=== PATIENT | female | born 1950 | race African-American/Black ===

== ENCOUNTER 2017-07-07 19:48 | Observation (INO) ==
[2017-07-07 20:07] LABS: Bilirubin,Urine Negative (Negative); Blood,Urine Negative (Negative); Clarity,Urine Cloudy (Clear); Color,Urine Yellow (Yellow); Glucose,Urine (UA) Normal (Normal); Ketones,Urine Negative (Negative); Leukocyte Esterase,Urine Negative (Negative); Nitrite,Urine Negative (Negative); PH,Urine 6.5 pH Units (5.0-8.0); Protein,Urine Trace mg/dL (Neg-Trace); Urobilinogen,Urine Normal (Normal)
[2017-07-07 20:09] LABS: Bacteria,Urine None Seen per hpf (None-Few); Hyaline Casts,Urine None Seen per lpf (None-Few); Squamous Epithelial Cell,Urine Many per lpf (None-Few)
[2017-07-07 20:22] LABS: Basophils % 0.4 %; Eosinophils # 0.6 K/mcL (0.0-0.6); Eosinophils % 6.7 %; Hematocrit 33.8 % (35.3-44.9); Hemoglobin 10.8 g/dL (11.5-15.4); Immature Granulocytes % 0.3 % (0-4); Lymphocytes # 1.9 K/mcL (0.6-4.6); Lymphocytes % 19.7 %; Mean Corpuscular Hemoglobin 27.2 pg (28.0-33.3); Mean Corpuscular Volume 85.1 fL (83.0-100.0); Mean Platelet Volume 9.5 fL (9.4-12.4); Monocytes # 0.7 K/mcL (0.0-1.3); Monocytes % 7.4 %; Neutrophils # 6.3 K/mcL (1.6-8.9); Platelet Count 311 K/mcL (140-400); Red Blood Count 3.97 M/mcL (3.82-4.97); Red Cell Distribution Width 12.6 % (11.5-14.5); Segmented Neutrophils % 65.5 %
[2017-07-07 20:32] LABS: RBC,Urine 0-3 per hpf (0-3)
[2017-07-07 20:49] LABS: Alanine Aminotransferase 7 Units/L (7-52); Albumin 3.8 g/dL (3.5-5.7); Albumin/Globulin Ratio 1.2 (1.1-2.2); Alkaline Phosphatase 70 Units/L (34-104); Amylase 58 Units/L (29-103); Aspartate Amino Transferase 11 Units/L (13-39); BUN/Creatinine Ratio 8 (6-26); Bilirubin,Direct 0.1 mg/dL (0.0-0.2); Bilirubin,Indirect 0.3 mg/dL (0.0-1.2); Bilirubin,Total 0.4 mg/dL (0.3-1.0); Blood Urea Nitrogen 8 mg/dL (8-23); Calcium 9.1 mg/dL (8.6-10.3); Carbon Dioxide 29 mEq/L (23-29); Chloride 104 mEq/L (98-107); Globulin 3.1 g/dL (2.4-3.5); Glucose 121 mg/dL (70-105); Lipase 32 Units/L (11-82); Osmolality,Calculated 292 (280-300); Potassium 3.1 mEq/L (3.5-5.1); Sodium 141 mEq/L (136-145); Total Protein 6.9 g/dL (6.4-8.9); eGFR For African Americans > 60 (> 60); eGFR For Non-African Americans 57 (> 60)
[2017-07-07 20:52] LABS: Troponin I 0.05 ng/mL (< 0.04)
[2017-07-07] MEDS ORDERED: *HR* HYDROcodone/Acet 5/325 mg TABLET PO ONE (21:28)
--- NOTE | 2017-07-07 21:37 | Emergency Department Note ---
Disposition Clinical Impression: Elevated troponin I level Strain of lumbar region Qualifiers: Encounter type: initial encounter Qualified Code(s): S39.012A - Strain of muscle, fascia and tendon of lower back, initial encounter Disposition: Admitted As Inpatient Condition: Fair Referrals: Lake Taylor DO [Primary Care Provider] - Forms: ED Satisfaction Letter Time of Disposition: 21:45 Back Pain HPI - General Chief Complaint: ED Back Pain/Injury Stated Complaint: right flank pain Time Seen by Provider: 07/07/17 20:23 Source: patient Limitations: no limitations Nursing Notes Reviewed: Yes Vital Signs Reviewed: Yes - History of Present Illness Pt Subjective Complaint: back pain Onset (ago): day(s) (10) Duration: gradually worsening Similar Symptoms Previously: No Location: thoracic spine (R Lower ) Pain Scale: 10 Quality: aching Radiation: other (No radiation to groin. Remains in lower quadrant of R back. No abdominal pain. ) Improves with: movement (extension of back ), other (Ibuprofen ) Worsens with: other (flexion) Context: turning/twisting, bending, other Associated symptoms: Denies: numbness, incontinence of bowel/bladder, fever, chills Treatments prior to arrival: other (ibuprofen ) - Related Data Home Medications Medication Instructions Recorded Confirmed Metoprolol XL (24 HR) Succ [Toprol 25 mg PO DAILY 05/04/16 07/07/17 XL] Potassium Chloride [Klor-Con 20 meq PO TID 07/07/17 07/07/17 Sprinkle] Allergies Allergy/AdvReac Type Severity Reaction Status Date / Time No Known Allergies Allergy Verified 07/07/17 20:00 Constitutional: Reports: other (No diaphoresis ). Denies: fever Cardiovascular: Reports: other (No radiation to L arm ). Denies: chest pain, palpitations Respiratory: Denies: dyspnea Gastrointestinal: Reports: diarrhea (chronic 2/2 to colitis ). Denies: abdominal pain Musculoskeletal: Reports: as per HPI, back pain Neurological: Reports: as per HPI, abnormal gait (2/2 to pain ). Denies: weakness, numbness Endocrine: Reports: heat or cold intolerance (2/2 to menoapuse ) Past Medical History - Past Medical History Medical history: Reports: hypertension Surgical history: Reports: hysterectomy Psychiatric history: Reports: no psych history CHIEF PILOT history: Reports: non-contributory - Social History Smoking Status: Never smoker Smokeless Tobacco Status: No Alcohol use: Reports: none Drug use: Reports: none Physical Exam - General Limitations: no limitations General appearance: alert, in no apparent distress - Head Head exam: atraumatic, normocephalic - Neck Neck exam: Present: full ROM - Chest Chest inspection: Present: symmetric chest wall rise. Absent: tenderness - Respiratory Respiratory exam: Absent: respiratory distress, wheezes, accessory muscle use - Cardiovascular Cardiovascular exam: Present: regular rate, normal rhythm, +S1, +S2 - Abdominal Exam Abdominal exam: Present: soft, Non-Tender, normal bowel sounds. Absent: tenderness, guarding, rebound, rigidity - Extremities Exam Extremities exam: Present: pedal edema (+1, pitting. ), other (Gross Sensation intact on b/l legs ). Absent: tenderness - Expanded Lower Extremity Exam Gait: observed and limited by pain, other (Patient able to bear weight b/l) - Back Exam Back exam: Present: paraspinal tenderness, other. Absent: vertebral tenderness (Limited ROM on lateral rotation and forward flexion) Course - Reevaluation(s) Reevaluation #1: 21:30 - Discussed lab findings with patient. Patient amenable to consideration of hospitalization. Reevaluation #2: 22:07 -Patient being transported to imaging via wheelchair. Reevaluation #3: 23:00 - Patient's back pain mildly improved however still endorses pain. Unable to rate. Offered lidocaine patch which patient accepted. Discussed X- ray imaging with patient and family. No evidence of an acute injury. Mild-to- moderate degenerative disc disease at L5-S1. Patient and family asked regarding need for physical therapy. Recommended patient follow-up with PCP regarding continued monitoring and treatment of back pain. Counseled patient that physical therapy may be of benefit, however this will ultimately depend on PCP' s recommendation. - Consultations Consultation #1: approx 21:35- Discussed case with Hospitalist. Requests cardiology recommendation. Cardiology consulted. Consultation #2: 22:00- Discussed case with Dr. Sharma. Recommends hospitalization, cardiology with remain on consult. No further recommendations at this time. Consultation #3: 22:05 - Hospitalist accepts admission. Vital Signs Temperature 99.2 F 07/07/17 20:00 Pulse Rate 86 07/07/17 20:00 Respiratory Rate 14 07/07/17 20:00 Blood Pressure 129/80 07/07/17 20:00 O2 Sat by Pulse Oximetry 96 07/07/17 20:00 Temperature 99.2 F 07/07/17 20:00 Pulse Rate 77 07/07/17 22:53 Respiratory Rate 18 07/07/17 22:53 Blood Pressure 124/78 07/07/17 22:53 O2 Sat by Pulse Oximetry 98 07/07/17 22:53 Oxygen Delivery Oxygen Delivery Room Air Back Pain/Injury - MDM Narrative Medical decision making narrative: 67-year-old female with a past medical history of hypertension and PSVT presenting with her right-sided back pain. No chest pains, no shortness of breath, no diaphoresis no radiation to left arm. Triage troponin levels elevated. No ischemic changes noted on EKG. Heart score 4 (Age > 65, Hx of HTN , Initial troponin 1-3 x normal limit) . Cardiology consult, recommend hospitalization for ACS rule out. No acute fracture seen on x-ray. - Medical Records Medical records reviewed: Yes I reviewed the patient's medical records. ECW Note with Dr. Branham -08/18/2016: "Previous testing: Holter monitor 11/28/2014: Average heart rate 84. Rare PVCs and PACs. One 4 beat episode of SVT consistent with atrial tachycardia. Echocardiogram 01/22/2015: LVEF 60-65%. Normal LV, RV size and function. Mild diastolic dysfunction. No pulmonary hypertension. No valvular dysfunction. Standard stress test 05/27/2015: Negative for ischemia. No arrhythmias during exercise or recovery. No chest discomfort reported." - Lab Data Lab results reviewed: Yes I reviewed the patient's lab results. Result diagrams: 07/07/17 20:10 07/07/17 20:10 Lab Results 07/07/17 07/07/17 07/07/17 Range/Units 19:50 20:10 20:10 WBC 9.6 (4.3-11.1) K/mcL RBC 3.97 (3.82-4.97) M/mcL Hgb 10.8 L (11.5-15.4) g/dL Hct 33.8 L (35.3-44.9) % MCV 85.1 (83.0-100.0) fL MCH 27.2 L (28.0-33.3) pg MCHC 32.0 (31.6-35.5) g/dL RDW 12.6 (11.5-14.5) % Plt Count 311 (140-400) K/mcL MPV 9.5 (9.4-12.4) fL Immature Gran % 0.3 (0-4) % Seg Neutrophils % 65.5 % Lymphocytes % 19.7 % Monocytes % 7.4 % Eosinophils % 6.7 % Basophils % 0.4 % Neutrophils # 6.3 (1.6-8.9) K/mcL Lymphocytes # 1.9 (0.6-4.6) K/mcL Monocytes # 0.7 (0.0-1.3) K/mcL Eosinophils # 0.6 (0.0-0.6) K/mcL Basophils # 0.0 (0.0-0.2) K/mcL Sodium 141 (136-145) mEq/L Potassium 3.1 L (3.5-5.1) mEq/L Chloride 104 (98-107) mEq/L Carbon Dioxide 29 (23-29) mEq/L BUN 8 (8-23) mg/dL Creatinine 0.98 (0.60-1.20) mg/dL Est GFR ( Amer) > 60 (> 60) Est GFR (Non-Af Amer) 57 L (> 60) BUN/Creatinine Ratio 8 (6-26) Glucose 121 H (70-105) mg/dL Calculated Osmolality 292 (280-300) Calcium 9.1 (8.6-10.3) mg/dL Total Bilirubin 0.4 (0.3-1.0) mg/dL Direct Bilirubin 0.1 (0.0-0.2) mg/dL Indirect Bilirubin 0.3 (0.0-1.2) mg/dL AST 11 L (13-39) Units/L ALT 7 (7-52) Units/L Alkaline Phosphatase 70 (34-104) Units/L Troponin I 0.05 H* (< 0.04) ng/mL Serum Total Protein 6.9 (6.4-8.9) g/dL Albumin 3.8 (3.5-5.7) g/dL Globulin 3.1 (2.4-3.5) g/dL Albumin/Globulin Ratio 1.2 (1.1-2.2) Amylase 58 (29-103) Units/L Lipase 32 (11-82) Units/L Urine Color Yellow (Yellow) Urine Clarity Cloudy A (Clear) Urine pH 6.5 (5.0-8.0) pH Units Ur Specific [place] 1.020 (1.010-1.025) Urine Protein Trace (Neg-Trace) mg/dL Urine Glucose (UA) Normal (Normal) mg/dL Urine Ketones Negative (Negative) mg/dL Urine Blood Negative (Negative) Urine Nitrite Negative (Negative) Urine Bilirubin Negative (Negative) Urine Urobilinogen Normal (Normal) mg/dL Ur Leukocyte Esterase Negative (Negative) Urine Microscopic RBC 0-3 (0-3) per hpf Urine Microscopic WBC 3-5 H (0-3) per hpf Ur Squamous Epith Cells Many H (None-Few) per lpf Urine Bacteria None Seen (None-Few) per hpf Hyaline Casts None Seen (None-Few) per lpf Ur Culture Indicated? NO (NO) - Radiology Data Radiology results reviewed: Yes I reviewed the patient's radiology results. Impressions Lumbar Spine X-Ray 07/07/17 21:27 IMPRESSION: Straightening of the normal lumbar lordosis. [id number] degenerative disc disease at L5-S1. No acute injury. D/ / Eliud Burnett MD / Eliud Burnett MD Interpreting Provider: Eliud Burnett MD Thoracic Spine X-Ray 07/07/17 21:27 IMPRESSION: No evidence of an acute injury. D/ / Eliud Burnett MD / Eliud Burnett MD Interpreting Provider: Eliud Burnett MD - EKG Data EKG attestation: Yes I reviewed and interpreted this EKG. EKG results narrative: 21:22:00 Sinus Rhythm. Ventricular rate 80. MS interval 154. QRS duration 81. QT/QTc 367/402. Reviewed with attending.
[2017-07-08] MEDS ORDERED: Dextrose Gel 15 GM/37.5 ML TUBE PO PRN ×2 (01:31)
[2017-07-08] MEDS ORDERED: D5% in Water 1,000 ML IVC PRN (01:31)
[2017-07-08] MEDS ORDERED: *HR* Dextrose 50 % in Water (Syg) 50 ML SYRINGE IVP PRN (01:31)
[2017-07-08] MEDS ORDERED: *HR* OxyCODONE Immed Rel 5 MG TABLET PO PRN (03:25)
[2017-07-08] MEDS ORDERED: Acetaminophen 325 MG TABLET PO PRN (03:25)
[2017-07-08] MEDS ORDERED: traMADol 50 MG TABLET PO PRN (03:25)
[2017-07-08] MEDS ORDERED: Naloxone 0.4 MG/ML INJ IVP PRN (03:25)
[2017-07-08] MEDS ORDERED: Potassium Chloride Elixir 20 MEQ/15 ML UDC PO ONE (03:28)
--- NOTE | 2017-07-08 03:29 | Internal Med History&Physical ---
Date of Encounter: 07/08/17 Time of Encounter: 03:29 Internal Medicine - H&P: HPI Chief complaint: Right lower back pain Admitted From: Emergency Dept Plans for Post Hospital Care: Home History of present illness: Ms. King is a 67 year old female with h/o- ulcerative colitis, presents with c/o- acute on chronic low back pain. SHe reports a 6-month h/o- right-sided low back pain, that got worse in the last 1 week, to the point that she cannot bend to clean her dining table. No h/o trauma. Pain is 10/10, nonradiating, constant , aggravated by turning in bed and bending, not associated with urinary/fecal incontinence, weakness/paresthesias in legs. She went to PCP yesterday with this complaint and was given steroids and muscle relaxants; she did not take the steroids due to side effects, but took muscle relaxants with no relief. No chest pain, shortness of breath, palpitations, dizziness or syncope. Past Med Surg Social Fam HX - Past Medical History Source: patient Psychiatric history: no psych history - Past Surgical History Surgical History: hysterectomy - Social History Smoking Status: Never smoker Smokeless Tobacco Status: No Alcohol use: none Drug use: none Occupational status: employed Current living situation: Home, With Family Activity Level: Independent ambulation Recent Out of Country Travel Within the Last 8 Weeks: No Exposure or Possible Exposure to Illness During Travel: No - Family History Mother Hx Family Endocrine Disorder: Yes (DM) Sister Hx Family Endocrine Disorder: Yes (DM) Hx Family Neurologic Disorders: Yes (CVA) Internal Medicine - H&P: Meds Metoprolol XL (24 HR) Succ [Toprol XL] 25 mg PO DAILY 05/04/16 [History] Potassium Chloride [Klor-Con Sprinkle] 20 meq PO TID 07/07/17 [History] 3 Allergy/AdvReac Type Severity Reaction Status Date / Time No Known Allergies Allergy Verified 07/07/17 20:00 All Systems PM: A 10-system review of systems was performed and is negative for pertinent findings except as documented above in the HPI. - Constitutional Constitutional: no chills, no fever(s), no night sweats - EENT Eyes: no change in vision, no discharge, no pain, no photophobia Ears: no ear discharge, no ear pain, no tinnitus Nose, mouth and throat: no dysphagia, no nasal discharge, no neck pain, no sore throat - Cardiovascular Cardiovascular ROS IM: no chest pain, no diaphoresis, no dyspnea, no lightheadedness, no palpitations, no syncope - Respiratory Respiratory: no cough, no dyspnea, no wheezing, no excessive phlegm production - Gastrointestinal Gastrointestinal: no abdominal pain, no diarrhea, no hematemesis, no hematochezia, no melena, no nausea, no vomiting - Genitourinary Genitourinary: no change in urinary stream, no dysuria, no flank pain, no hematuria - Musculoskeletal Musculoskeletal ROS IM: back pain, stiffness - Integumentary Integumentary IM: no rash, no unusual bruising - Neurological Neurological ROS: dizziness, no confusion, no convulsions, no focal weakness, no numbness, no tingling, no tremor(s) - Hematologic/Lymphatic Hematologic/Lymphatic: no easy bruising - Constitutional Vitals: Temp Pulse Resp BP Pulse Ox 97.5 F L 79 15 123/76 100 07/08/17 03:11 07/08/17 03:11 07/08/17 03:11 07/08/17 03:11 07/08/17 03:11 General appearance: Present: A&O X 3, answers questions appropriately - Respiratory Respiratory exam: Present: CTAB. Absent: accessory muscle use, rales, rhonchi, wheezes - Cardiovascular Cardiovascular exam: Present: RRR, +S1, +S2. Absent: diastolic murmur, gallop, rubs, systolic murmur - GI/Abdominal GI/Abdominal exam: Present: normal bowel sounds, soft, no peritoneal signs. Absent: distended, tenderness - Extremities Exam Extremities exam: Present: full ROM, warm, radial pulses palpable and symmetrical. Absent: calf tenderness, cyanotic, pedal edema - Back Exam Back exam: Present: muscle spasm, tenderness (right lumbar area) Additional comments: no vertebral tenderness - Neurological Exam Neurological exam: Present: CN II-XII intact, oriented X3, no focal deficits. Absent: pronater drift, facial droop, speech deficit - Skin Skin exam: Present: dry, intact Internal Med - H&P Results - Labs CBC & Chem 7: 07/08/17 04:58 07/08/17 04:58 - EKG Data -: EKG Interpreted by Myself EKG shows normal: sinus rhythm Rate: normal - Assessment and plan (1) Lumbar pain Current Visit: Yes Status: Acute Assessment and plan: acute on chronic right-sided lumbar pain; will get MRI L-spine; pain control with PRN Tramadol and Oxycodone; supportive care; (2) Ulcerative colitis, chronic Current Visit: Yes Status: Chronic Qualifiers: Ulcerative colitis location: unspecified ulcerative colitis location Digestive disease complication type: unspecified complication Qualified Code(s ): K51.919 - Ulcerative colitis, unspecified with unspecified complications (3) Elevated troponin I level Current Visit: Yes Status: Acute Assessment and plan: very minimal Troponin leak at 0.05; EKG shows no acute ischemic changes; continue Telemetry monitoring and trend Troponins; continue Metoprolol; (4) Hypokalemia Current Visit: Yes Status: Acute Assessment and plan: continue home regimen of potassium chloride; will give an extra dose of KCl 40meq; - Time Spent With Patient Total time spent is greater than 50% in coordination of care (as documented) at patient's floor/unit and/or counseling patient:
[2017-07-08] MEDS ORDERED: Ringers Solution, Lactated 1,000 ML IVC SCH (03:30)
[2017-07-08 05:25] LABS: Basophils % 0.5 %; Eosinophils # 0.6 K/mcL (0.0-0.6); Eosinophils % 7.3 %; Hematocrit 32.1 % (35.3-44.9); Hemoglobin 10.1 g/dL (11.5-15.4); Immature Granulocytes % 0.5 % (0-4); Lymphocytes # 1.7 K/mcL (0.6-4.6); Lymphocytes % 20.3 %; Mean Corpuscular HGB Conc 31.5 g/dL (31.6-35.5); Mean Corpuscular Hemoglobin 26.8 pg (28.0-33.3); Mean Corpuscular Volume 85.1 fL (83.0-100.0); Monocytes # 0.7 K/mcL (0.0-1.3); Neutrophils # 5.3 K/mcL (1.6-8.9); Platelet Count 277 K/mcL (140-400); Red Blood Count 3.77 M/mcL (3.82-4.97); Red Cell Distribution Width 12.4 % (11.5-14.5); Segmented Neutrophils % 63.4 %
[2017-07-08 05:42] LABS: BUN/Creatinine Ratio 9 (6-26); Blood Urea Nitrogen 8 mg/dL (8-23); Calcium 8.5 mg/dL (8.6-10.3); Carbon Dioxide 32 mEq/L (23-29); Chloride 103 mEq/L (98-107); Glucose 132 mg/dL (70-105); Osmolality,Calculated 292 (280-300); Potassium 2.8 mEq/L (3.5-5.1); Sodium 141 mEq/L (136-145); eGFR For African Americans > 60 (> 60); eGFR For Non-African Americans > 60 (> 60)
[2017-07-08] MEDS ORDERED: Insulin LISPRO 300 UNITS/3 ML VIAL SQ SCH ×2 (07:30→21:00)
[2017-07-08] MEDS: Metoprolol XL (24 HR) Succ 25 MG TAB.ER.24H PO SCH (07:53)
[2017-07-08 08:54] LABS: Magnesium 1.8 mg/dL (1.6-2.6)
--- NOTE | 2017-07-08 13:00 | Cardiology Consult Note ---
<Tej Valladares R - Last Filed: 07/08/17 16:41> Date of Encounter: 07/08/17 Time of Encounter: 12:57 Assessment and Plan (1) Elevated troponin I level Current Visit: Yes Status: Acute Initial troponin borderline 0.05, then negative x 2. Initial borderline troponin is of unclear significance. Endorses acute on chronic low back pain that seems musculoskeletal, worse with bending, twisting and movement. EKG is sinus rhythm, no ischemic findings. She denies chest pain. She reports occasional exertional dyspnea. Check TTE to evaluate structure and function. If no significant findings on echo , anticipate sign off. (2) Hypokalemia Current Visit: Yes Status: Acute On PO replacement at home. Despite this, K is 2.8 today. Extra K dose already given today. Discussion w patient/family: The assessment and plan as outlined above was discussed with the patient and/or family members who expressed understanding and agreement. All questions were answered. Thank you for involving us in the care of your patient. Please call with any questions. I will discuss all the above with Dr. Mayer and make changes as necessary. History of Present Illness Consult date: 07/08/17 Requesting physician: Karly Rivera Consult reason: elevated troponin Chief complaint: low back pain History of present illness: Ms. King is a 67 year old female with PMH of HTN, ulcerative colitis, presented to ED with acute on chronic low back pain. She reports a 6-month hx of right-sided low back pain, that got worse in the last 1 week, to the point that she cannot bend to clean, worse with any movement. No h/o trauma. Pain is 10/10, nonradiating, constant, not associated with urinary/fecal incontinence, weakness/paresthesias in legs. Troponins 0.05, then 0.03 x 2. Pt denies any chest pain or worsening dyspnea from baseline. She does admit to exertional dyspnea. No personal cardiac hx. Reports her mother had 3V CABG and valve replacement in her 80s. EKG sinus rhythm with no acute changes. Past Med Surg Social Fam HX - Past Medical History Medical history: hypertension Psychiatric history: no psych history - Past Surgical History Surgical History: hysterectomy - Social History Smoking Status: Never smoker Smokeless Tobacco Status: No Alcohol use: none Drug use: none - Family History Mother Hx Family Endocrine Disorder: Yes (DM) Sister Hx Family Endocrine Disorder: Yes (DM) Hx Family Neurologic Disorders: Yes (CVA) Medications and Allergies Metoprolol XL (24 HR) Succ [Toprol XL] 25 mg PO DAILY 05/04/16 [History] Potassium Chloride [Klor-Con Sprinkle] 20 meq PO TID 07/07/17 [History] 3 Allergy/AdvReac Type Severity Reaction Status Date / Time No Known Allergies Allergy Verified 07/07/17 20:00 All Systems Review: The remainder of the systems were reviewed and are negative - Cardiovascular Cardiovascular: as per HPI, dyspnea on exertion - Respiratory Respiratory: dyspnea - Musculoskeletal Musculoskeletal: back pain Physical Examination Vital Signs, Last 4 Hours Temp Pulse Resp BP Pulse Ox 07/08/17 11:46 99.1 F 84 14 121/72 97 Vital Signs Temp Pulse Resp BP Pulse Ox 07/08/17 11:46 99.1 F 84 14 121/72 97 07/08/17 08:03 97 07/08/17 07:31 98.6 F 82 15 120/73 97 07/08/17 03:11 97.5 F L 79 15 123/76 100 07/08/17 01:12 98.0 F 79 15 135/80 99 07/07/17 22:53 77 18 124/78 98 07/07/17 20:00 99.2 F 86 14 129/80 96 Intake and Output 07/07/17 07/08/17 07/08/17 23:59 07:59 15:59 Intake Total 200 / 200 120 / 120 Output Total 500 / 500 200 / 200 Balance -300 / -300 -80 / -80 Intake: Oral 200 / 200 120 / 120 Output: Urine 500 / 500 200 / 200 Other: Meal Breakfast Percent of Meal Consumed 100% # Voids 1 Weight 61.235 kg 59.421 kg Blood Glucose* 73 Patient Weight 07/08/17 23:59 Weight 59.421 kg General: Conversant, No Apparent Distress HEENT: Atraumatic, Normocephaly, Mucus Membranes Moist Neck: No JVD, Normal carotid pulses Cardiac: Reg Rate and Rhythm, Normal S1 and S2, No Murmur Lungs: Normal Breath Sounds, No Wheeze, Rales, Rhonchi Neuro: Alert and responsive, No focal deficits noted Abdomen: Soft, Non-Tender Skin: No rashes noted on visualized skin Musculoskeletal: No Chest Wall Tenderness Extremities: No Clubbing, No Cyanosis, No Edema, Normal Pulses Results 07/08/17 04:58 07/08/17 04:58 Lab Results 07/08/17 07/08/17 07/08/17 04:58 04:58 04:58 WBC 8.4 Hgb 10.1 L Hct 32.1 L Plt Count 277 Sodium 141 Potassium 2.8 L Chloride 103 Carbon Dioxide 32 H BUN 8 Creatinine 0.86 Glucose 132 H Calcium 8.5 L Magnesium 1.8 Troponin I < 0.03 07/08/17 10:37 WBC Hgb Hct Plt Count Sodium Potassium Chloride Carbon Dioxide BUN Creatinine Glucose Calcium Magnesium Troponin I < 0.03 Short CBC 07/08/17 07/07/17 Range/Units 04:58 20:10 WBC 8.4 9.6 (4.3-11.1) K/mcL Hgb 10.1 L 10.8 L (11.5-15.4) g/dL Hct 32.1 L 33.8 L (35.3-44.9) % Plt Count 277 311 (140-400) K/mcL Neutrophils # 5.3 6.3 (1.6-8.9) K/mcL BMP 07/08/17 07/07/17 Range/Units 04:58 20:10 Sodium 141 141 (136-145) mEq/L Potassium 2.8 L 3.1 L (3.5-5.1) mEq/L Chloride 103 104 (98-107) mEq/L Carbon Dioxide 32 H 29 (23-29) mEq/L BUN 8 8 (8-23) mg/dL Creatinine 0.86 0.98 (0.60-1.20) mg/dL Glucose 132 H 121 H (70-105) mg/dL Calcium 8.5 L 9.1 (8.6-10.3) mg/dL Cardiac Enzymes 07/08/17 07/08/17 07/07/17 Range/Units 10:37 04:58 20:10 Troponin I < 0.03 < 0.03 0.05 H* (< 0.04) ng/mL Liver Function 07/07/17 Range/Units 20:10 Total Bilirubin 0.4 (0.3-1.0) mg/dL Direct Bilirubin 0.1 (0.0-0.2) mg/dL AST 11 L (13-39) Units/L ALT 7 (7-52) Units/L Alkaline Phosphatase 70 (34-104) Units/L Albumin 3.8 (3.5-5.7) g/dL Urine 07/07/17 Range/Units 19:50 Urine Color Yellow (Yellow) Urine Clarity Cloudy A (Clear) Urine pH 6.5 (5.0-8.0) pH Units Ur Specific [place] 1.020 (1.010-1.025) Urine Protein Trace (Neg-Trace) mg/dL Urine Glucose (UA) Normal (Normal) mg/dL Impressions Lumbar Spine X-Ray 07/07/17 21:27 IMPRESSION: Straightening of the normal lumbar lordosis. [id number] degenerative disc disease at L5-S1. No acute injury. D/ / Eliud Burnett MD / Eliud Burnett MD Interpreting Provider: Eliud Burnett MD Thoracic Spine X-Ray 07/07/17 21:27 IMPRESSION: No evidence of an acute injury. D/ / Eliud Burnett MD / Eliud Burnett MD Interpreting Provider: Eliud Burnett MD Active Medications Acetaminophen (Tylenol) 650 mg PO Q6HR PRN PRN Reason: Mild Pain/Fever Stop: 01/07/18 03:26 Dextrose/Water (Dextrose 50% (Syg)) 25 ml IVP AD PRN PRN Reason: Hypoglycemia Stop: 01/07/18 01:32 Glucagon (Glucagen) 1 mg IM ONCE PRN PRN Reason: Hypoglycemia Stop: 01/07/18 01:32 Glucose (Gluctose) 15 gm PO ONCE PRN PRN Reason: Hypoglycemia Stop: 01/07/18 01:32 Glucose (Gluctose) 30 gm PO ONCE PRN PRN Reason: Hypoglycemia Stop: 01/07/18 01:32 Dextrose (Dextrose 5%) 1,000 mls @ 100 mls/hr IVC .Q10H PRN PRN Reason: HYPOGLYCEMIA Stop: 01/07/18 01:32 Lactated Ringer's (Lactated Ringers) 1,000 mls @ 60 mls/hr IVC .[id number] [facility] Stop: 07/09/17 12:49 Last Admin: 07/08/17 04:43 Dose: 60 mls/hr Lidocaine HCl (Lidoderm 5% Patch) 1 each TP DAILY [facility] Stop: 01/06/18 22:46 Last Admin: 07/08/17 07:53 Dose: 1 each Metoprolol Succinate (Toprol Xl) 25 mg PO DAILY [facility] Stop: 01/07/18 09:01 Last Admin: 07/08/17 07:53 Dose: 25 mg Naloxone HCl (Narcan) 0.4 mg IVP Q2MIN PRN PRN Reason: SEE COMMENTS Stop: 01/07/18 03:26 Oxycodone HCl (Roxicodone) 10 mg PO Q6HR PRN PRN Reason: Severe Pain Stop: 01/07/18 03:26 Potassium Chloride (Potassium Chloride) 20 meq PO TID [facility] Stop: 01/07/18 09:01 Last Admin: 07/08/17 07:52 Dose: 20 meq Tramadol HCl (Ultram) 50 mg PO Q6HR PRN PRN Reason: Moderate Pain Stop: 01/07/18 03:26 - EKG Interpretation EKG results cardiology: personally reviewed (SR) Consult Discharge Plan - Plan Referrals: Lake Taylor DO [Primary Care Provider] - <Guillermina Mayer - Last Filed: 07/08/17 17:46> Date of Encounter: 07/08/17 - Attending Attestation I examined this patient and my medical decision-making was reviewed with the [employer] WORKER. I agree with the documented findings, disposition and treatment plan as described. Ms. King presents with acute on chronic low back pain appears musculoskeletal by history taking, made worse with particular movements. Incidentally, one troponin was borderline at 0.05, others negative. This is of unclear significance. Patient denies chest pain. No ischemic ECG findings. Recommend obtaining echo for evaluation of structure and function. Provided no concerning findings, consider outpatient stress testing. May consider addition of low dose aspirin for primary prevention of CVD if primary team agrees. Assessment and Plan Discussion w patient/family: The assessment and plan as outlined above was discussed with the patient and/or family members who expressed understanding and agreement. All questions were answered. Thank you for involving us in the care of your patient. Please call with any questions. History of Present Illness History of present illness: Ms. King is a 67 year old female All Systems Review: The remainder of the systems were reviewed and are negative Physical Examination Vital Signs, Last 4 Hours Temp Pulse Resp BP Pulse Ox 07/08/17 16:37 98.7 F 68 16 130/70 98 Results 07/08/17 04:58 07/08/17 04:58 Lab Results 07/08/17 07/08/17 07/08/17 04:58 04:58 04:58 WBC 8.4 Hgb 10.1 L Hct 32.1 L Plt Count 277 Sodium 141 Potassium 2.8 L Chloride 103 Carbon Dioxide 32 H BUN 8 Creatinine 0.86 Glucose 132 H Calcium 8.5 L Magnesium 1.8 Troponin I < 0.03 07/08/17 07/08/17 10:37 16:06 WBC Hgb Hct Plt Count Sodium Potassium Chloride Carbon Dioxide BUN Creatinine Glucose Calcium Magnesium Troponin I < 0.03 0.04 H*
--- NOTE | 2017-07-08 14:35 | Internal Med Progress Note ---
<Epi Alanis - Last Filed: 07/08/17 14:32> Date of Encounter: 07/08/17 Time of Encounter: 10:02 - Assessment and plan (1) Lumbar pain Current Visit: Yes Status: Acute Assessment and plan: - acute on chronic right-sided lumbar pain; - Xrays show no acute process, straightening of lumbar lordosis. - MRI L-spine, pending. - pain control with PRN Tramadol and Oxycodone; - supportive care; - Will likely need outpatient follow up. Recommend PT as outpatient. (2) Elevated troponin I level Current Visit: Yes Status: Acute Assessment and plan: very minimal Troponin leak at 0.05; EKG shows no acute ischemic changes Cards consulted in ED, state that this is unlikely ACS however will obtain TTE to rule out wall motion abnormality. Trops trended and adynamic. No complaints of chest pain. (3) Ulcerative colitis, chronic Current Visit: Yes Status: Chronic Assessment and plan: - stable, no in acute exacerbation per patient. - patient denies diarrhea, blood per rectum, pain Qualifiers: Ulcerative colitis location: unspecified ulcerative colitis location Digestive disease complication type: unspecified complication Qualified Code(s ): K51.919 - Ulcerative colitis, unspecified with unspecified complications (4) Hypokalemia Current Visit: Yes Status: Acute Assessment and plan: continue home regimen of potassium chloride; Given an extra dose of KCl 40meq; on admission Continues to be low at 2.8 most recently. Will replenish as necessary (5) DVT prophylaxis Current Visit: Yes Status: Acute Assessment and plan: Heparin 5000 units q12 - Time Spent With Patient Total time spent is greater than 50% in coordination of care (as documented) at patient's floor/unit and/or counseling patient: less than 15 minutes - Subjective Interval history: This note is not for billing purposes as patient was seen after midnight. Patient was seen and examined at bedside. She states her pain in her back is improved from admission. States it is on her right lower back without radiation to her hip. Denies any symptoms of numbness, tingling, weakness, fevers, chills. 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 No exacerbating or relieving factors, although she states the lidocaine patches are helping. - Constitutional Vitals: Temp Pulse Resp BP Pulse Ox 99.1 F 84 14 121/72 97 07/08/17 11:46 07/08/17 11:46 07/08/17 11:46 07/08/17 11:46 07/08/17 11:46 General appearance: Present: A&O X 3, answers questions appropriately Exam: Gen.: Vitals noted. No acute distress. AAOx3, laying comfortably in bed. HEENT: PERRL/EOMI, oropharynx clear, Normocephalic, atraumatic Cardiac: RRR, no murmur, +S1/S2 Pulmonary: CTA bilaterally, no wheezes, rales or rhonchi, equal chest expansion Abdomen: soft, nontender, BS noted, no guarding Back: Tender to palpation on right lumbar region. No radiaiton. MSK: ROM intact, no joint swelling noted Extremities: no BLE edema, nontender calf, no cyanosis or clubbing Neuro: A&Ox3, moves all extremities, no focal deficits, muscle strength in b/l LE 5/5. Sensory intact. Psych: Appropriate mood and behavior Internal Medicine: Result - Labs CBC & Chem 7: 07/08/17 04:58 07/08/17 04:58 Labs: Short CBC 07/08/17 Range/Units 04:58 WBC 8.4 (4.3-11.1) K/mcL Hgb 10.1 L (11.5-15.4) g/dL Hct 32.1 L (35.3-44.9) % Plt Count 277 (140-400) K/mcL Neutrophils # 5.3 (1.6-8.9) K/mcL BMP 07/08/17 04:58 Sodium 141 Potassium 2.8 L Chloride 103 Carbon Dioxide 32 H BUN 8 Creatinine 0.86 Glucose 132 H Calcium 8.5 L Cardiac Enzymes 07/08/17 07/08/17 Range/Units 04:58 10:37 Troponin I < 0.03 < 0.03 (< 0.04) ng/mL Consult Discharge Plan - Plan Referrals: Lake Taylor DO [Primary Care Provider] - <Jefry Gonzalez - Last Filed: 07/08/17 17:00> Date of Encounter: 07/08/17 - Assessment and plan (1) Elevated troponin I level Current Visit: Yes Status: Acute (2) Lumbar pain Current Visit: Yes Status: Acute (3) Ulcerative colitis, chronic Current Visit: Yes Status: Chronic Qualifiers: Ulcerative colitis location: unspecified ulcerative colitis location Digestive disease complication type: unspecified complication Qualified Code(s ): K51.919 - Ulcerative colitis, unspecified with unspecified complications (4) Hypokalemia Current Visit: Yes Status: Acute (5) DVT prophylaxis Current Visit: Yes Status: Acute - Time Spent With Patient Total time spent is greater than 50% in coordination of care (as documented) at patient's floor/unit and/or counseling patient: - Constitutional Vitals: Temp Pulse Resp BP Pulse Ox 98.7 F 68 16 130/70 98 07/08/17 16:37 07/08/17 16:37 07/08/17 16:37 07/08/17 16:37 07/08/17 16:37 Internal Medicine: Result - Labs CBC & Chem 7: 07/08/17 04:58 07/08/17 04:58 Labs: Short CBC 07/08/17 Range/Units 04:58 WBC 8.4 (4.3-11.1) K/mcL Hgb 10.1 L (11.5-15.4) g/dL Hct 32.1 L (35.3-44.9) % Plt Count 277 (140-400) K/mcL Neutrophils # 5.3 (1.6-8.9) K/mcL BMP 07/08/17 04:58 Sodium 141 Potassium 2.8 L Chloride 103 Carbon Dioxide 32 H BUN 8 Creatinine 0.86 Glucose 132 H Calcium 8.5 L Cardiac Enzymes 07/08/17 07/08/17 07/08/17 Range/Units 04:58 10:37 16:06 Troponin I < 0.03 < 0.03 0.04 H* (< 0.04) ng/mL - Impressions Impressions Lumbar Spine MRI 07/08/17 03:27 IMPRESSION: 1. Abnormal low T1 signal noted throughout the marrow. This could be related to anemia versus red marrow, however an underlying infiltrative marrow disorder cannot be excluded. 2. Moderate central spinal canal narrowing at L4-L5 with mild-moderate bilateral foraminal narrowing at this level. The disc contacts the left L5 nerve root in the lateral recess. 3. Moderate-severe left and moderate right foraminal narrowing at L5-S1. 4. No evidence of an acute fracture. 5. Asymmetric edema along the right L4-L5 facet joint which may be related to degenerative changes with an associated synovitis. No appreciable marrow edema or fluid collection to suggest infection. Correlate clinically. D/ / 07/08/2017 15:53:05 Tevin Saleem MD / [facility] Interpreting Provider: Tevin Saleem MD - Attending Attestation I examined this patient and my medical decision-making was reviewed with the Resident Physician on 07/08/17. I agree with the documented findings, disposition and treatment plan as described except to the extent set forth below. Ms King was placed in observation earlier today with back pain and elevated troponin. MRI and echo pending. Exam Alert Comfortable Mucus membranes dry Heart not tachy I/P 1. Back pain 2. elevated troponin MRI and echo pending. Agree with assessment and plan as above.
[2017-07-08] MEDS: *HR* Heparin 5,000 UNIT/ML VIAL SQ SCH (17:07)
[2017-07-09] MEDS: *HR* Heparin 5,000 UNIT/ML VIAL SQ SCH (05:55)
--- NOTE | 2017-07-09 06:25 | Electrocardiograph Report ---
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
[2017-07-09 07:48] VITALS: BP 108/68
[2017-07-09] MEDS: Metoprolol XL (24 HR) Succ 25 MG TAB.ER.24H PO SCH (07:51)
[2017-07-09 07:53] LABS: BUN/Creatinine Ratio 8 (6-26); Blood Urea Nitrogen 7 mg/dL (8-23); Calcium 8.3 mg/dL (8.6-10.3); Carbon Dioxide 28 mEq/L (23-29); Chloride 108 mEq/L (98-107); Glucose 92 mg/dL (70-105); Osmolality,Calculated 288 (280-300); Potassium 3.7 mEq/L (3.5-5.1); Sodium 140 mEq/L (136-145); eGFR For African Americans > 60 (> 60); eGFR For Non-African Americans > 60 (> 60)
--- NOTE | 2017-07-09 08:47 | Event Note ---
Date of Encounter: 07/09/17 Time of Encounter: 08:46 - Cardiology Event Note Echo images reviewed. LV systolic function remains normal. Can consider outpatient stress testing for ischemic workup once overall clinical picture has improved. Consider addition of low dose aspirin. Will sign off. Please call with questions.
--- NOTE | 2017-07-09 09:33 | Discharge Summary ---
<Epi Alanis - Last Filed: 07/09/17 15:57> - NOTES TO OUTPATIENT PROVIDER Notes to Outpatient Provider: Lumbar MRI showing degenerative changes and reactive synovitis. Recommend physical therapy as outpatient. Date of Encounter: 07/09/17 Time of Encounter: 09:31 - Discharge Diagnosis (1) Lumbar pain Priority: Primary Status: Acute (2) Elevated troponin I level Priority: Secondary Status: Acute (3) Ulcerative colitis, chronic Priority: Secondary Status: Chronic Qualifiers: Ulcerative colitis location: unspecified ulcerative colitis location Digestive disease complication type: unspecified complication Qualified Code(s ): K51.919 - Ulcerative colitis, unspecified with unspecified complications (4) Hypokalemia Priority: Secondary Status: Resolved (5) DVT prophylaxis Priority: Secondary Status: Acute Hospital course: Ms. King is a 67 year old female with past medical history of hypertension, ulcerative colitis and chronic back pain presenting to the emergency room with complaint of increased right lower back pain which was not associated with trauma occurring approximately 10 days ago. She states it has been gradually worsening. She did see her PCP on who gave her a muscle relaxer and steroid however she states that she did not take these medications as she was unsure how they would affect her at work. On presentation to the emergency room , vital signs were unremarkable. Lab results were also significant for anemia which was at patient's baseline, hypokalemia at 3.1, troponin of 0.05. Cardiology consult was placed in the emergency room and they did not see and evaluate patient during hospital stay. Patient was admitted to medicine service for further evaluation and management of right lower back pain as well as elevated troponin. During course fossil stay, patient did gradually improve. She was evaluated by cardiology and underwent a echocardiogram which was unremarkable showing an normal left ventricular systolic function and recommended outpatient stress testing for ischemic workup. Troponin was trended and was adynamic. She did receive a lumbar MRI for further evaluation of her back pain which showed moderate central spinal canal narrowing at L4-L5, moderate to severe left and moderate right foraminal narrowing at L5-S1, asymmetric edema at L4-L5 presenting possible synovitis. There is no acute abnormality related. Patient was given pain medication with improvement of her symptoms. She did state that lidocaine patches were particularly helpful and she will be given a muscle relaxer and ibuprofen for discharge home. Patient was instructed to follow up with her primary care physician for further evaluation and management of this chronic pain. He was also recommended that physical therapy may be of use in the future. All questions were answered and patient will be discharged home in stable medical condition. Her hypokalemia was also treated with oral potassium replacement and did return to normal levels. Discharge discussed with: patient - Time Spent with Patient Total time spent providing and/or coordinating discharge services: - Discharge Medications Prescriptions: Ibuprofen 800 mg PO Q6HR PRN #20 tablet PRN Reason: Pain Orphenadrine [Norflex] 100 mg PO Q12HR #10 tab Lidocaine Patch [Lidoderm 5% patch] 1 each TP DAILY #5 patch Home Medications: Metoprolol XL (24 HR) Succ [Toprol Xl] 25 mg PO DAILY 05/04/16 [History] Potassium Chloride [Klor-Con Sprinkle] 20 meq PO TID 07/07/17 [History] Ibuprofen 800 mg PO Q6HR PRN #20 tablet 07/09/17 [Rx] Lidocaine Patch [Lidoderm 5% patch] 1 each TP DAILY #5 patch 07/09/17 [Rx] Orphenadrine [Norflex] 100 mg PO Q12HR #10 tab 07/09/17 [Rx] Allergies/Adverse Reactions: 3 Allergy/AdvReac Type Severity Reaction Status Date / Time No Known Allergies Allergy Verified 07/07/17 20:00 Date of admission: 07/07/17 23:27 Primary care physician: Lake Taylor, Discharging clinician: Epi Alanis Anticipated date of discharge: 07/09/17 - Constitutional Vitals: Temp Pulse Resp BP Pulse Ox 97.4 F L 84 14 108/68 98 07/09/17 07:47 07/09/17 07:47 07/09/17 07:47 07/09/17 07:47 07/09/17 07:47 General appearance: Present: A&O X 3, answers questions appropriately Exam: Gen.: Vitals noted. No acute distress. AAOx3 HEENT: PERRL/EOMI, oropharynx clear, Normocephalic, atraumatic, MMM Cardiac: RRR, no murmur, +S1/S2 Pulmonary: CTA bilaterally, no wheezes, rales or rhonchi, equal chest expansion Abdomen: soft, nontender, BS noted, no guarding Back: Mildly to palpation on the right lower lumbar region MSK: ROM intact, no joint swelling noted Extremities: no BLE edema, nontender calf, no cyanosis or clubbing Neuro: A&Ox3, moves all extremities, no focal deficits Psych: Appropriate mood and behavior - Patient Status Disposition: Home, Self-Care Condition: Good Functional capacity at discharge: independent ambulation Overall status at discharge: patient is progressing back to baseline - Discharge Instructions Instructions: Hypokalemia (DC), Ulcerative Colitis (DC), Low Back Strain (DC) Follow Up With: Lake Taylor DO [Primary Care Provider] - (Web request put in for patients follow up appoitment, please call patient for appoitment ) Additional Instructions: Please follow with primary care physician within 5 days. Take all medications as prescribed and please do not drive while on the muscle relaxer. - Diet and Activity Activity: increase activity as tolerated, return to work once cleared by your PCP/specialist, resume usual activities as tolerated Diet: advance to your usual diet <Jefry Gonzalez - Last Filed: 07/09/17 16:41> Date of Encounter: 07/09/17 - Discharge Diagnosis (1) Lumbar pain Status: Acute (2) Elevated troponin I level Status: Resolved (3) Ulcerative colitis, chronic Status: Chronic Qualifiers: Ulcerative colitis location: unspecified ulcerative colitis location Digestive disease complication type: without complication Qualified Code(s): K51.90 - Ulcerative colitis, unspecified, without complications (4) Hypokalemia Status: Resolved (5) DVT prophylaxis Status: Acute Hospital course: Ms. King is a 67 year old female - Time Spent with Patient Total time spent providing and/or coordinating discharge services: Date of admission: 07/07/17 23:27 Primary care physician: Lake Taylor, - Constitutional Vitals: Temp Pulse Resp BP Pulse Ox 97.4 F L 84 14 108/68 98 07/09/17 07:47 07/09/17 07:47 07/09/17 07:47 07/09/17 07:47 07/09/17 07:47 - Attending Attestation I examined this patient and my medical decision-making was reviewed with the Resident Physician on 07/09/17. I agree with the documented findings, disposition and treatment plan as described except to the extent set forth below. Ms King has been in observation for acute on chronic back pain and elevated troponin. She had MRI which was negative for acute process. She has had some relief but still present and will need further outpatient treatment. Her troponin was slightly elevated and echo OK. Seen by cardiology and placed on ASA. May benefit from outpatient stress when able. At this time she is afebrile. She is ready for discharge home. Exam Alert Mild distress when moves Mucus membranes dry Heart reg no wheeze Plan D/C home today.
[2017-07-09] MEDS ORDERED: Orphenadrine 100 MG TABLET.ER PO ONE (10:16)
== END 2017-07-09 12:03 | disposition home or self-care (01) ==
LOC: 3ANU 19:48 → EMEROO 19:48 → SUATTDRO 23:27 → 3ANU 23:57
PROVIDERS: ADMIT Internal Medicine; ATTEND Internal Medicine